=== PATIENT | female | born 1990 | race Two or more races ===

== ENCOUNTER 2024-12-25 09:43 | Emergency (ER) | payer OTHER ==
[~2024-12-25] VITALS: Ht 149.9 cm; Wt 49.0 kg
[2024-12-25 10:22] LABS: PLATELET COUNT (AUTO) 325 K/uL (150-450); RED BLOOD CELL COUNT(AUTO) 4.80 MIL/uL (4.0-5.2); RED CELL DISTRIBUTION WIDTH 15.6 % (11.5-15.0); WHITE BLOOD COUNT (AUTO) 8.8 K/uL (4.3-11.0)
[2024-12-25 10:23] LABS: PREGNANCY TEST URINE QUAL NEGATIVE (NEGATIVE)
[2024-12-25 10:24] LABS: ADD URINE CULTURE YES; APPEARANCE,URINE CLEAR (CLEAR); BLOOD, URINE NEGATIVE Ery/uL (NEGATIVE); LEUKOCYTE ESTERASE ,URINE 1+ (NEGATIVE); NITRITE, URINE NEGATIVE (NEGATIVE); SQUAMOUS EPITHELIAL CELL,UR Rare /HPF (None Seen); UGLUCOSE NEGATIVE (NEGATIVE)
[2024-12-25 10:34] LABS: CALCIUM, SERUM 8.5 mg/dL (8.5-10.1); CREATININE 0.5 mg/dL (0.6-1.3); SODIUM SERUM 143.0 mmol/L (136-145); UREA NITROGEN, BLOOD 12.0 mg/dL (7-18)
[2024-12-25 10:37] LABS: BARBITURATE, URINE NEGATIVE (NEGATIVE); BENZODIAZEPINE, URINE NEGATIVE (NEGATIVE); CANNABINOID, URINE NEGATIVE (NEGATIVE); COCCAINE, URINE NEGATIVE (NEGATIVE); OPIATE, URINE NEGATIVE (NEGATIVE)
[2024-12-25 10:37] LABS: ASPARTATE AMINOTRANSFERASE 21.0 U/L (15-37); TOTAL PROTEIN, SERUM 7.5 g/dL (6.4-8.2)
[2024-12-25 10:38] LABS: AMPHETAMINE, URINE POSITIVE (NEGATIVE)
[2024-12-25 10:43] LABS: LACTIC ACID 1.2 mmol/L (0.4-2.0)
[2024-12-25] MEDS ORDERED: OLAN5TAB3 PO (12:16)
[2024-12-25] MEDS ORDERED: NITR100C6 PO (12:16)
[2024-12-25 13:59] VITALS: BP 115/76; TEMP 98; O2SAT 99
== END 2024-12-25 14:01 | disposition home or self-care (01) ==
LOC: ER 09:47
DX: R44.0 Auditory hallucinations (principal); R45.851 Suicidal ideations; F31.9 Bipolar disorder, unspecified
CPT/HCPCS: 36415; 80048-TC; 80076-TC; 81001; 83605-TC; 83690-TC; 84703-TC; 85025-TC; 87086-TC